=== PATIENT | male | born 1945 | race Caucasian/White ===

== ENCOUNTER → 2020-09-07 | Day surgery (SDC) | payer MEDICARE, OTHER ==
[2020-08-31 14:48] LABS: BASOPHILS % (AUTO) 0.4 % (0-1); EOSINOPHILS # (AUTO) 0.1 X10'3 (0-0.9); EOSINOPHILS % (AUTO) 2.1 % (0-6); MEAN CORPUSCULAR HGB CONC 33.8 g/dL (33.0-36.5); MEAN CORPUSCULAR VOLUME 91.8 FL (78-98); MEAN PLATELET VOLUME 7.5 FL (7.4-10.4); MONOCYTES # (AUTO) 0.3 X10'3 (0-0.9); MONOCYTES % (AUTO) 8.2 % (2-12); NEUTROPHILS # (AUTO) 2.5 X10'3 (1.8-7.7); NEUTROPHILS % (AUTO) 64.3 % (42-75); PRE OP HEMATOCRIT 41.9 % (42.0-52.0); PRE OP HEMOGLOBIN 14.2 g/dL (14.0-17.9); PRE OP PLATELET COUNT 137 X10'3 (140-440); RED BLOOD COUNT 4.57 X10'6 (4.70-6.10); RED CELL DISTRIBUTION WIDTH 12.9 % (11.5-14.5)
[2020-08-31 15:02] LABS: ALBUMIN/GLOBULIN RATIO 1.4 (1.1-1.5); ALKALINE PHOSPHATASE 42 IU/L (46-116); BLOOD UREA NITROGEN 12 MG/DL (7-18); BUN/CREATININE RATIO 14.5 (5.4-32.0); CALCIUM 9.2 MG/DL (8.5-10.1); CHLORIDE 105 MMOL/L (99-107); CREATININE 0.83 MG/DL (0.60-1.10); PRE OP ALT 22 U/L (30-65); PRE OP ANION GAP 9 (8-16); PRE OP AST 21 U/L (10-37); PRE OP GLUCOSE 91 MG/DL (70-104); PRE OP POTASSIUM 4.1 MMOL/L (3.4-5.1); PRE OP SODIUM 143 MMOL/L (135-145); TOTAL PROTEIN 6.9 G/DL (6.4-8.2); eGFR > 90 ML/MIN
[~2020-09-07] VITALS: Ht 175.3 cm; Wt 69.9 kg
[2020-09-07] VITALS (10 sets, daily range): BP systolic 121–138; BP diastolic 65–80
[~2020-09-07] MED LIST: BUPIVAcaine/PF 2.5 mg/ml (0.25%) 30ml vial ONE; COQ10; HYDROcodone/acetaminophen 10/325mg tab PO PRN; HYDROcodone/acetaminophen 5mg/325mg tablet PO PRN; LIDOcaine 1% 30ml preserv. free vial ONE; LIDOcaine 2% (20mg/ml) 5ml vial ONE; MAGNESIUM; OMEGA 3; OMEP-50 PO; PROSTATE HEALTH; ROSU5TAB12 PO; SIMV10TA98 PO; TURMERIC; VITAMIN C; VITAMIN D3; ZINC; acetaminophen 1,000mg/100ml IV 100 ML IV PRN; cefazolin/dext.iso 2gm/100ml 100 ML IV ONE; dexamethasone sod phosphate 4mg/ml inj. ONE; famotidine 20mg tablet PO ONE; fentaNYL /PF 50mcg/ml 5ml ampule ONE; glycopyrrolate 0.2mg/ml inj ONE; hydrALAZINE 20mg/ml inj. IV PRN; labetalol 20mg/4ml (5mg/ml) syringe IV PRN; meperidine/PF 25mg/ml syringe IV PRN; midazolam 1 mg/ML 2ml injection ONE; morphine 2 MG/ML inj. syringe IV PRN; morphine 4 MG/ML inj SYRINge IV PRN; neostigmine methylsulfate 1 MG/ML 10ml vial ONE; ondansetron/PF 4mg/2ml inj IV PRN; ondansetron/PF 4mg/2ml inj ONE; proCHLORperazine 10 MG/2 ml inj IV PRN; propofol inj 20 ML IV ONE; ringers solution, lacted 1,000 ML IV SCH; rocuronium 10mg/ml inj IV ONE; sevoflurane 250ml liquid IH ONE
--- NOTE | 2020-09-07 09:05 | NUR ---
Received from OR via [facility] , accompanied by Anesthesiologist NADEGE and report given by Anesthesiolgist. PATIENT WITH 20G PIV IN RIGHT UE RUNNING LRA T 100. DENIES PAIN. PATIENT WITH 3 ANTERIOR ABDOMINAL BANDAIDS PRESENT. PATIENT WITH NO C.O. PAIN AT THIS TIME.10 L MASK ON WITH 100% SATURATIONS. Addendum: 09/07/20 at 0912 by Az Dumont RN, RN Amended: Links added.
--- NOTE | 2020-09-07 10:55 | NUR ---
CARE BEING RESUMED BY MARY CRUZ RN ON PAS. PATIENT VSS AND VOIDING WITHOUT DIFFICULTY. CARE TURNED OVER. Addendum: 09/07/20 at 1116 by Az Dumont RN, RN Amended: Links added.
--- NOTE | 2020-09-07 11:00 | NUR ---
PT TO PAS FROM PACU. PT ALERT AND ORIENTED. WALKING AROUND, TOLERATING JUICE AND WATER.
--- NOTE | 2020-09-07 12:00 | NUR ---
PT CONTINUES TO HYDRATE AND AMBULATE, UNABLE TO VOID STILL.
--- NOTE | 2020-09-07 13:45 | NUR ---
PT UNABLE TO VOID AFTER MULTIPLE ATTEMPTS. 16 YAKUT F/C PLACED PER MD ORDERS DUE TO PT BEING UNABLE TO VOID. PT TOLERATED WELL.
--- NOTE | 2020-09-07 14:00 | NUR ---
PT HAD APPROX 500 ML OF URINE DRAIN FROM F/C AFTER INSERTION. PT STATES RELIEF AND DENIES SIGNIFICANT PAIN.
--- NOTE | 2020-09-07 14:25 | NUR ---
PT WAS DISCHARGED TO HOME SAFELY VIA W/C. ALL INSTRUCTIONS REVIEWED W/ PT AND SPOUSE UPON D/C TO HOME. PT STATES UNDERSTANDING RE; POST OF ARCHER CARE. ALL BELONGINGS W/ PT UPON DC.
== END | disposition home or self-care (01) ==
LOC: PAS 05:43
PROVIDERS: ATTEND Surgery
DX: K42.0 Umbilical hernia with obstruction, without gangrene (principal); K40.90 Unilateral inguinal hernia, without obstruction or gangrene, not specified as recurrent; Z20.822 Contact with and (suspected) exposure to COVID-19; K21.9 Gastro-esophageal reflux disease without esophagitis; E78.5 Hyperlipidemia, unspecified; M19.90 Unspecified osteoarthritis, unspecified site; I44.7 Left bundle-branch block, unspecified; Z98.890 Other specified postprocedural states; Z79.899 Other long term (current) drug therapy; Z87.891 Personal history of nicotine dependence
CPT/HCPCS: 36415; 49587; 49650; 80053; 82948; 85025; C1781; J1100; J2001; J2250; J2405; J2704; J2710; J3010; J3490; U0003; U0005; A4215; A4618; J7120